=== PATIENT | female | born 1970 | race African-American/Black ===

== ENCOUNTER 2020-04-11 15:12 | Inpatient (IN) | payer OTHER ==
[~2020-04-11] VITALS: Ht 157.5 cm; Wt 187.8 kg
--- NOTE | 2020-04-11 15:20 | NUR ---
[id number] FOR SOB AND BLE SWELLING X 5 DAYS. BG 227 SAP PPM CONSULTANT. PATIENT A/OX4, BREATHING EVEN AND UNLABORED, NO SOB NOTED, NEEDS ATTENDED, KEPT COMFORTABLE. CONNECTED TO THE MONITOR.
--- NOTE | 2020-04-11 15:25 | NUR ---
DR. LAMA AT BEDSIDE FOR EVAL.
[2020-04-11] MEDS ORDERED: HYDROCODONE/APAP 5/325MG TABLET ONE ×2 (16:04→22:24)
[2020-04-11 16:07] LABS: BASOPHILS % (AUTO) 0.5 % (0.0-2.0); EOSINOPHILS % (AUTO) 4.4 % (0.0-6.0); HEMATOCRIT 34 % (33-45); HEMOGLOBIN 10.7 g/dL (11.5-14.8); LYMPHOCYTES # (AUTO) 1.7 /CMM (0.8-4.8); LYMPHOCYTES % (AUTO) 24.7 % (20.0-44.0); MEAN CORPUSCULAR HGB CONC 32 g/dl (31.0-36.0); MEAN CORPUSCULAR VOLUME 84 fL (82-100); MONOCYTES # (AUTO) 0.8 /CMM (0.1-1.30); MONOCYTES % (AUTO) 12.5 % (2.0-12.0); NEUTROPHILS # (AUTO) 3.9 /CMM (1.8-8.9); NEUTROPHILS % (AUTO) 57.9 % (43.0-81.0); PLATELET COUNT (AUTO) 229 /CMM (150-450); RED BLOOD CELL COUNT(AUTO) 4.07 MIL/uL (4.0-5.2); WHITE BLOOD COUNT (AUTO) 6.7 K/uL (4.3-11.0)
[2020-04-11] MEDS ORDERED: MORPHINE SULFATE INJ 4 MG/ML DISP.SYRIN ONE (16:07)
[2020-04-11] MEDS ORDERED: ONDANSETRON HCL/PF 4 MG/2 ML VIAL ONE (16:07)
--- NOTE | 2020-04-11 16:14 | NUR ---
PATIENT IN PAIN, RECEIVED VERBAL ORDER TO GIVE NORCO 5/325MG X2 TABS ONCE, PATIENT REFUSED, PT STS SHE CAN'T SWALLOW AT THIS TIME. INFORMED DR. LAMA. RECEIVED ANOTHER VERBAL ORDER TO GIVE ZOFRAN 4MG IV AND MORPHINE 4MG IV X1. ORDER NOTED AND CARRIED OUT.
[2020-04-11 16:16] LABS: CALCIUM, SERUM 8.2 mg/dL (8.5-10.1); CARBON DIOXIDE 31 mmol/L (21-32); CHLORIDE 102 mmol/L (98-107); CREATININE 1.6 mg/dL (0.6-1.3); GLUCOSE 150 mg/dL (74-106); POTASSIUM 3.9 mmol/L (3.5-5.1); SODIUM SERUM 139 mmol/L (136-145); UREA NITROGEN, BLOOD 22 mg/dL (7-18)
[2020-04-11 16:30] LABS: ALANINE AMINOTRANSFERASE 15 U/L (12-78); ALBUMIN 3.1 g/dL (3.4-5.0); ALKALINE PHOSPHATASE 121 U/L (46-116); ASPARTATE AMINOTRANSFERASE 13 U/L (15-37); B-TYPE NATRIURETIC PEPTIDE 1755 PG/ML (0-125); BILIRUBIN,DIRECT 0.1 mg/dL (0.0-0.2); BILIRUBIN,TOTAL 0.5 mg/dL (0.2-1.0); TOTAL PROTEIN, SERUM 7.2 g/dL (6.4-8.2)
[2020-04-11] MEDS ORDERED: MORPHINE SULFATE INJ 2 MG/ML DISP.SYRIN IV ONE (16:30)
[2020-04-11] MEDS ORDERED: HYDROCODONE/APAP 5/325MG TABLET PO ONE (16:30)
[2020-04-11] MEDS ORDERED: ONDANSETRON HCL/PF 4 MG/2 ML VIAL IV ONE (16:30)
[2020-04-11] MEDS ORDERED: LEVE500T9 PO (16:40)
[2020-04-11] MEDS ORDERED: ACET325T53 PO (16:40)
[2020-04-11] MEDS ORDERED: INSU100V27 SQ (16:40)
[2020-04-11] MEDS ORDERED: LOSA50TA39 PO (16:40)
[2020-04-11] MEDS ORDERED: HYDR50TA61 PO (16:40)
[2020-04-11] MEDS ORDERED: ALBU6.7H9 IH (16:40)
[2020-04-11] MEDS ORDERED: DILT180C66 PO (16:40)
[2020-04-11] MEDS ORDERED: GABA600T PO (16:40)
[2020-04-11] MEDS ORDERED: FURO-144 PO (16:40)
[2020-04-11] MEDS ORDERED: METO50TA16 PO (16:40)
[2020-04-11] MEDS ORDERED: HYDR-4077 PO (16:40)
[2020-04-11] MEDS ORDERED: FLUT16SP16 NS (16:40)
[2020-04-11] MEDS ORDERED: ACET-2605 PO (16:40)
[2020-04-11] MEDS ORDERED: IBUP-51 PO (16:40)
[2020-04-11] MEDS ORDERED: DOCU-141 PO (16:40)
[2020-04-11] MEDS ORDERED: QUET50TA PO (16:40)
[2020-04-11] MEDS ORDERED: ATOR40TA PO (16:40)
[2020-04-11] MEDS ORDERED: APIX5TAB PO (16:40)
[2020-04-11] MEDS ORDERED: CITA40TA22 PO (16:40)
[2020-04-11] MEDS ORDERED: CRAN3875 PO (16:40)
[2020-04-11] MEDS ORDERED: METH-406 PO (16:40)
[2020-04-11] MEDS ORDERED: METF500S7 PO (16:40)
[2020-04-11] MEDS ORDERED: PROM118S5 PO (16:40)
[2020-04-11] MEDS ORDERED: PANT40TA49 PO (16:40)
[2020-04-11] MEDS ORDERED: FUROSEMIDE 40 MG/4 ML VIAL IV ONE (17:30)
[2020-04-11] MEDS ORDERED: FUROSEMIDE 40 MG/4 ML VIAL ONE (17:46)
--- NOTE | 2020-04-11 18:33 | NUR ---
RECEIVED VERBAL AUTH FROM ABIDA Darden ([employer])
[2020-04-11] MEDS ORDERED: MAGNESIUM HYDROXIDE 30 ML UDC PO PRN (19:00)
[2020-04-11] MEDS ORDERED: ZOLPIDEM TARTRATE 5 MG TABLET PO PRN (19:00)
[2020-04-11] MEDS ORDERED: MAG HYDROX/AL HYDROX/SIMETH 30 ML UDC PO PRN (19:00)
[2020-04-11] MEDS ORDERED: ONDANSETRON HCL/PF 4 MG/2 ML VIAL IVP PRN (19:00)
[2020-04-11] MEDS ORDERED: Z GUARD REMEDY 2 OZ OINT TP PRN (19:00)
[2020-04-11] MEDS ORDERED: ACETAMINOPHEN 325 MG TABLET PO PRN (19:00)
[2020-04-11] MEDS ORDERED: ENOXAPARIN SODIUM 40 MG/0.4 ML DISP.SYRIN SQ SCH (19:00)
--- NOTE | 2020-04-11 19:10 | NUR ---
ATTEMPTED TO REASSESS PT. PT REFUSED TO HAVE HER VSS TAKEN. PT VERBALLY AGGRESSIVE DESPITE THERAPEUTIC MEASURES.
--- NOTE | 2020-04-11 19:15 | NUR ---
PT REMOVING CARDIAC LEADS.
--- NOTE | 2020-04-11 20:50 | NUR ---
OK TO ADMIT PER ADMITTING
--- NOTE | 2020-04-11 21:37 | NUR ---
CALLED TO GIVE REPORT, NURSE NOT AVAILABLE FOR THIS PT
--- NOTE | 2020-04-11 21:39 | NUR ---
WAIT FOR TIER OVER TO CALL, NEED MORE NURSES TO ACCOMODATE PATIENT.
--- NOTE | 2020-04-11 21:39 | NUR ---
NEW BED GIVE BY JANITOR SUPERVISOR 251 TELE OVERFLOW TO ICU
[2020-04-11] MEDS: HYDROCODONE/APAP 5/325MG TABLET PO PRN (22:26)
[2020-04-12] VITALS (7 sets, daily range): BP systolic 116–163; BP diastolic 66–85
--- NOTE | 2020-04-12 00:06 | NUR ---
PT TRANSFERRED TO ROOM IN STABLE CONDITION
[2020-04-12] MEDS: HYDROCODONE/APAP 5/325MG TABLET PO PRN ×4 (02:58→19:39)
--- NOTE | 2020-04-12 03:59 | NUR ---
RN notes Admitted a 49 year old female from ER via wheelchair with admitting diagnosis of Acute CHF. Noted with slight difficulty of breathing, on room air with O2sat of 95%, Complaining of back, right shoulder and chest pain 03/08. Patient is alert and oriented with flight of ideas, jumping from one point to another. [place] given, slightly effective. Vital signs wnl. Needs attended. Kept clean and dry. Addendum: 04/12/20 at 0717 by ZANDRA RODRÍGUEZ RN Noted patient to be alert and oriented and just pretending not to be focused on any topic. Patient took out all her wirings for monitoring of her vital signs. She did not pull out her IV because as she said I need pain medication through my vein. Refused to put back all vital signs wiring. Explained risk and benefits. Patient tried to get out of the room and went to the door to get out to smoke. Able to persuade patient to go back and stay in bed because her covid test is still pending and she is still not allowed to go out. Patient has been screaming all throughout the night. Patient was complaining of pain all over her body and she needs pain medication through vein. Gave norco which she took, but still complaining it is not enough. All needs attended. Kept clean and dry. Endorsed to next shift for continuity of care.
[2020-04-12 05:02] LABS: BASOPHILS % (AUTO) 0.5 % (0.0-2.0); EOSINOPHILS % (AUTO) 4.3 % (0.0-6.0); HEMATOCRIT 35 % (33-45); HEMOGLOBIN 11.1 g/dL (11.5-14.8); LYMPHOCYTES # (AUTO) 2.3 /CMM (0.8-4.8); LYMPHOCYTES % (AUTO) 31.3 % (20.0-44.0); MEAN CORPUSCULAR HGB CONC 31 g/dl (31.0-36.0); MEAN CORPUSCULAR VOLUME 83 fL (82-100); MONOCYTES # (AUTO) 0.8 /CMM (0.1-1.30); MONOCYTES % (AUTO) 11.3 % (2.0-12.0); NEUTROPHILS # (AUTO) 3.8 /CMM (1.8-8.9); NEUTROPHILS % (AUTO) 52.6 % (43.0-81.0); PLATELET COUNT (AUTO) 232 /CMM (150-450); RED BLOOD CELL COUNT(AUTO) 4.24 MIL/uL (4.0-5.2); WHITE BLOOD COUNT (AUTO) 7.3 K/uL (4.3-11.0)
[2020-04-12 05:24] LABS: CALCIUM, SERUM 8.6 mg/dL (8.5-10.1); CREATININE 1.4 mg/dL (0.6-1.3); MAGNESIUM 1.9 mg/dL (1.8-2.4); PHOSPHORUS 4.6 mg/dL (2.5-4.9); POTASSIUM 3.7 mmol/L (3.5-5.1)
[2020-04-12 05:27] LABS: THYROID STIMULATING HORMONE 2.35 uIU/mL (0.358-3.74)
--- NOTE | 2020-04-12 07:30 | NUR ---
PT RECEIVED IN BED, EYES OPEN EATING BREAKFAST, ALERT AND ORIENTED X 4. PT ON RA O2 SATURATION 95%. NO SOB OR RESPIRATORY DISTRESS AT REST. PT MONITOR SHOWING SR 80-100. IV RAC #20 SL, FLUSHED WELL NO SIGNS OF INFECTION OR INFILTRATION. BED IN LOCKED LOWEST POSITION, CALL LIGHT WITHIN REACH. ALL SAFETY MEASURES IN PLACE. WILL CONTINUE TO MONITOR CLOSELY.
[2020-04-12] MEDS: PANTOPRAZOLE 40 MG TABLET.DR PO SCH (07:40)
[2020-04-12] MEDS ORDERED: FUROSEMIDE 40 MG/4 ML VIAL IV SCH (09:00)
--- NOTE | 2020-04-12 09:34 | NUR ---
PT REFUSES LASIX UNTIL BARIATRIC COMMODE AVAILABLE FROM [facility]. WILL HOLD DOSE AND FOLLOW UP WITH [facility]
[2020-04-12] MEDS: APIXABAN 5 MG TABLET PO SCH ×2 (10:00→17:00)
[2020-04-12] MEDS: VALSARTAN 80 MG TABLET PO SCH (10:00)
[2020-04-12] MEDS ORDERED: PANTOPRAZOLE 40 MG TABLET.DR PO SCH (10:00)
[2020-04-12] MEDS: DOCUSATE SODIUM 100 MG CAPSULE PO SCH ×2 (10:00→17:00)
--- NOTE | 2020-04-12 10:43 | NUR ---
40 MG OF LASIX GIVEN FOR SCHEDULED 0900 DOSE. ACTION UNDONE DUE TO PT REFUSAL. LASIX THEN GIVEN AFTER. MED RECON COMPLETED, WITH 0900 DOSE OF LASIX D/C BUT IN THE MAR "MISSED DOSE". PT HAS UPCOMING DOSE OF LASIX AT 1200 FOR 80 MG. WILL ADMINISTER ONLY 40 MG INSTEAD OF THE FULL 80 MG DOSE AT 1200
[2020-04-12] MEDS: METOPROLOL TARTRATE 50 MG TABLET PO SCH ×2 (10:57→18:05)
[2020-04-12] MEDS: hydrALAZINE HCL 50 MG TABLET PO SCH ×2 (10:58→17:00)
--- NOTE | 2020-04-12 11:05 | NUR ---
PT CUT SELF ON COMMODE, SLIGHT BLEEDING. ELIQUIS WITHHELD
[2020-04-12 11:19] LABS: ABG BASE EXCESS 3.6 mmol/L; ABG OXYGEN SATURATION 90.4 % (92.0-98.5); ABG PCO2 53.9 mmHg (35.0-45.0); ABG PH 7.363 (7.350-7.450); ABG PO2 62.5 mmHg (75.0-100.0); AaDO2 22.7 mmHg; COHb 1.8 % (0.5-1.5); MetHb 0.1 % (0.0-1.5); O2Hb 88.7 % (94.0-97.0); SITE, ABG Right Radial; VENT MODE, BG room air
[2020-04-12] MEDS ORDERED: *INSULIN REGULAR(HUMULIN R)HUM 100 UNIT/ML VIAL SQ PRN (12:00)
[2020-04-12] MEDS ORDERED: DEXTROSE 50%-WATER 50 ML DISP.SYRIN IV PRN (12:00)
[2020-04-12] MEDS: FUROSEMIDE 100 MG/10 ML VIAL IV SCH ×3 (12:18→19:42)
[2020-04-12] MEDS: BLOOD SUGAR DIAGNOSTIC 1 EACH STRIP VI SCH ×3 (12:19→21:21)
[2020-04-12] MEDS: INSULIN REGULAR, HUMAN 100 UNIT/ML 3 ML VIAL SQ PRN ×2 (12:23→18:13)
[2020-04-12] MEDS: POTASSIUM CHLORIDE 20 MEQ TAB.PRT.SR PO SCH ×3 (12:24→14:54)
[2020-04-12] MEDS: MORPHINE SULFATE INJ 2 MG/ML DISP.SYRIN IV PRN ×3 (12:28→21:38)
[2020-04-12] MEDS: DILTIAZEM HCL CD 300 MG PO SCH (13:05)
[2020-04-12] MEDS ORDERED: D-METHORPHAN HB/PROMETH HCL 5 ML UDC PO PRN (13:30)
[2020-04-12] MEDS: IPRATROPIUM NEB FS 0.5 MG/2.5 ML AMPUL.NEB NEB SCH ×2 (13:30→19:30)
--- NOTE | 2020-04-12 13:50 | NUR ---
[facility] HELD PENDING COVID RESULT
[2020-04-12] MEDS: GABAPENTIN 300 MG CAPSULE PO SCH ×2 (14:11→20:14)
[2020-04-12] MEDS: CITALOPRAM HYDROBROMIDE 20 MG TABLET PO SCH (14:54)
[2020-04-12] MEDS ORDERED: GUAIFENESIN/D-METHORPHAN HB 5 ML UDC PO PRN (17:00)
--- NOTE | 2020-04-12 17:48 | NUR ---
PT TRANSFERRED TO [facility]
--- NOTE | 2020-04-12 17:48 | NUR ---
UA COLLECTED, AWAITING PICK-UP FROM LAB
--- NOTE | 2020-04-12 18:00 | NUR ---
PM MEDS OF ELIQUIS, COLACE WITHHELD DUE TO PT REFUSAL DESPITE RN EDUCATION. HYDRALAZINE WITHHELD DUE BP SBP 126/79. METOPROLOL AND LASIX GIVEN
[2020-04-12] MEDS: LEVETIRACETAM (250 MG) 250 MG TABLET PO SCH (18:04)
[2020-04-12 19:05] LABS: CREATININE, URINE 72.5 MG/DL (30.0-125.0)
--- NOTE | 2020-04-12 19:20 | NUR ---
RN NOTE PT AWAKE AND ALERT/ORIENTED X 4. ASSISTED TO BEDSIDE COMMODE. ON ROOM AIR, RESPIRATIONS EVEN AND UNLABORED, SR ON THE BAND SAW OPERATOR, IV LINE FLUSHED AND PATENT. PLAN OF CARE DISCUSSED, CALL LIGHT WITHIN REACH, SAFETY MEASURES IN PLACE PER PROTOCOL, WILL MONITOR PATIENT.
[2020-04-12 19:28] LABS: BILIRUBIN,URINE NEGATIVE (NEGATIVE); BLOOD, URINE NEGATIVE Ery/uL (NEGATIVE); COLOR,URINE YELLOW (YELLOW); LEUKOCYTE ESTERASE ,URINE TRACE (NEGATIVE); NITRITE, URINE NEGATIVE (NEGATIVE); PROTEIN,URINE NEGATIVE (NEGATIVE); UGLUCOSE NEGATIVE (NEGATIVE)
--- NOTE | 2020-04-12 19:33 | NUR ---
PT IN BED, AWAKE AND ORIENTED X 4. PT O2 SATURATION 95% RA NO RESPIRATORY DISTRESS OR SOB. PT IV ACCESS REMAINS INTACT AND FLUSHED WELL, SALINE LOCKED, NO SIGNS OF INFECTION OR INFILTRATION. PT AMBULATORY TO BEDSIDE COMMODE, 1 BM TODAY AND 1500 ML URINE OUTPUT. PT HAS LEFT LEG WOUND, WOUND CARE CONSULT INITIATED. PT IN BED LOCKED LOWEST POSITION. CALL LIGHT WITHIN PLACE. ALL SAFETY MEASURES IN PLACE. REPORT GIVEN TO ETHAN FOR BERTO.
[2020-04-12 19:49] LABS: BACTERIA,URINE 1+ /HPF (None Seen); RBC,URINE 0-2 /HPF (0-2)
[2020-04-12 19:53] LABS: EOSINOPHIL,URINE None Seen
[2020-04-13] VITALS: BP 123/98
[2020-04-13] MEDS: IPRATROPIUM NEB FS 0.5 MG/2.5 ML AMPUL.NEB NEB SCH ×2 (01:30→07:55)
--- NOTE | 2020-04-13 02:00 | NUR ---
RN NOTE PT SLEEPING IN BED COMFORTABLY WITHOUT SIGNS OF PAIN OR DISCOMFORT.
[2020-04-13] MEDS: MORPHINE SULFATE INJ 2 MG/ML DISP.SYRIN IV PRN ×2 (03:43→09:01)
[2020-04-13 04:00] VITALS: BP 147/73
[2020-04-13] MEDS: HYDROCODONE/APAP 5/325MG TABLET PO PRN (04:51)
--- NOTE | 2020-04-13 05:14 | NUR ---
RN NOTE PT RESTLESS AND AGITATED. ADMINISTERED PRN PAIN MEDICATION REQUESTED BY PATIENT. POST ADMINISTRATION OF ANALGESICS, PT IS STILL RESTLESS WITH PAIN AND STATES THAT SMOKING WILL HELP WITH HER PAIN. PT TRIED TO LEAVE ROOM TO GO SMOKE. EXPLAINED PT CANNOT SMOKE AND LEAVE UNIT PER HOSPITAL POLICY. OFFERED TO CALL TO OBTAIN ORDER FOR NICOTINE PATCH BUT PT REFUSED . EXPLAINED THAT SECURITY WILL BE CALLED IF PT TRIED TO LEAVE THE UNIT TO GO SMOKE. PT THEN CALMED DOWN AND RETURNED TO BED. WILL MONITOR CLOSELY. EXECUTIVE SALES ASSISTANT MADE AWARE.
--- NOTE | 2020-04-13 05:30 | NUR ---
RN NOTE TEAROOM HOST AT BEDSIDE DRAWING AM LABS. PT NOW DENIES PAIN OR DISCOMFORT.
[2020-04-13 06:14] LABS: BASOPHILS % (AUTO) 0.4 % (0.0-2.0); EOSINOPHILS % (AUTO) 4.2 % (0.0-6.0); HEMATOCRIT 36 % (33-45); HEMOGLOBIN 11.4 g/dL (11.5-14.8); LYMPHOCYTES # (AUTO) 1.7 /CMM (0.8-4.8); LYMPHOCYTES % (AUTO) 23.8 % (20.0-44.0); MEAN CORPUSCULAR HGB CONC 32 g/dl (31.0-36.0); MEAN CORPUSCULAR VOLUME 84 fL (82-100); MONOCYTES # (AUTO) 0.9 /CMM (0.1-1.30); MONOCYTES % (AUTO) 12.8 % (2.0-12.0); NEUTROPHILS # (AUTO) 4.3 /CMM (1.8-8.9); NEUTROPHILS % (AUTO) 58.8 % (43.0-81.0); PLATELET COUNT (AUTO) 237 /CMM (150-450); RED BLOOD CELL COUNT(AUTO) 4.28 MIL/uL (4.0-5.2); WHITE BLOOD COUNT (AUTO) 7.3 K/uL (4.3-11.0)
[2020-04-13 06:45] LABS: ALANINE AMINOTRANSFERASE 21 U/L (12-78); ALBUMIN 3.5 g/dL (3.4-5.0); ALKALINE PHOSPHATASE 124 U/L (46-116); ASPARTATE AMINOTRANSFERASE 25 U/L (15-37); BILIRUBIN,TOTAL 0.9 mg/dL (0.2-1.0); CALCIUM, SERUM 8.7 mg/dL (8.5-10.1); CARBON DIOXIDE 36 mmol/L (21-32); CHLORIDE 101 mmol/L (98-107); CREATININE 1.2 mg/dL (0.6-1.3); GLUCOSE 153 mg/dL (74-106); MAGNESIUM 1.8 mg/dL (1.8-2.4); PHOSPHORUS 3.9 mg/dL (2.5-4.9); POTASSIUM 4.2 mmol/L (3.5-5.1); SODIUM SERUM 139 mmol/L (136-145); TOTAL PROTEIN, SERUM 7.9 g/dL (6.4-8.2); UREA NITROGEN, BLOOD 20 mg/dL (7-18)
--- NOTE | 2020-04-13 06:52 | NUR ---
RN NOTE NO ACUTE CHANGES OBSERVED OVERNIGHT. PT AWAKE AND ALERT/ORIENTED X 4. PT SITTING UP AT EDGE OF BED. PT STILL REQUESTING TO GO SMOKE. EXPLAINED HOSPITAL POLICY AGAIN. ASSISTED PT TO BEDSIDE COMMODE. IV LINE FLUSHED AND PATENT. ON ROOM AIR. RESPIRATIONS EVEN AND UNLABORED. DENIES PAIN OR DISCOMFORT AT THIS TIME. CONTINUING STRICT INTAKE AND OUTPUT. CALL LIGHT WITHIN REACH, SAFETY MEASURES IN PLACE, WILL ENDORSE TO MORNING RN FOR BERTO.
[2020-04-13] MEDS: BLOOD SUGAR DIAGNOSTIC 1 EACH STRIP VI SCH (07:39)
--- NOTE | 2020-04-13 07:45 | NUR ---
RN OPENING NOTE: RECEIVED PATIENT IN BED THIS MORNING. PATIENT IS AAOX4, RESPONDS APPROPRIATELY. SATING WELL ON ROOM AIR. NO SIGNS OF ACUTE DISTRESS NOTED AT THIS TIME. CONTROLLED AFIB IN THE 80S NOTED ON THE TELE MONITOR. AMBULATORY WITH ASSIST. AWAITING WOUND CONSULT. #18 RAC. SAFETY MEASURES IMPLEMENTED, BED IN LOWEST POSITION, LOCKED, SIDE RAILS UP, CALL LIGHT WITHIN REACH. WILL CONTINUE TO MONITOR PATIENT FOR CHANGES.
[2020-04-13 08:00] VITALS: BP 149/62
[2020-04-13] MEDS: DOCUSATE SODIUM 100 MG CAPSULE PO SCH (08:15)
[2020-04-13] MEDS: PANTOPRAZOLE 40 MG TABLET.DR PO SCH (08:15)
[2020-04-13] MEDS: METOPROLOL TARTRATE 50 MG TABLET PO SCH (08:15)
[2020-04-13 08:16] VITALS: BP 149/62
[2020-04-13] MEDS: hydrALAZINE HCL 50 MG TABLET PO SCH (08:16)
[2020-04-13] MEDS: LEVETIRACETAM (250 MG) 250 MG TABLET PO SCH (08:16)
[2020-04-13] MEDS: VALSARTAN 80 MG TABLET PO SCH (08:16)
[2020-04-13] MEDS: CITALOPRAM HYDROBROMIDE 20 MG TABLET PO SCH (08:16)
[2020-04-13] MEDS: GABAPENTIN 300 MG CAPSULE PO SCH (08:16)
[2020-04-13] MEDS: DILTIAZEM HCL CD 300 MG PO SCH (08:16)
[2020-04-13] MEDS: APIXABAN 5 MG TABLET PO SCH (08:17)
[2020-04-13] MEDS: INSULIN REGULAR, HUMAN 100 UNIT/ML 3 ML VIAL SQ PRN (08:18)
[2020-04-13] MEDS ORDERED: Medication Not On Formulary EA (Cran/Vitc/Mannose/Inulin/Brom (Uti-Stat Liquid) 30 MG) PO SCH (09:00)
[2020-04-13] MEDS ORDERED: METHOCARBAMOL (750MG) 750 MG TABLET PO SCH (09:00)
[2020-04-13] MEDS ORDERED: FLUTICASONE PROPIONATE 16 GM BOTTLE NS SCH (09:00)
--- NOTE | 2020-04-13 09:15 | NUR ---
CONTGATED RX, AWAITING ROBAXAN
[2020-04-13] MEDS ORDERED: FUROSEMIDE 100 MG/10 ML VIAL IV SCH (09:30)
--- NOTE | 2020-04-13 09:30 | NUR ---
PATIENT GETTING VERBALLY AGGRESSIVE THREATENING TO FIGHT ME. SECURITY CALLED TO STANDBY IN CASE OF ALTERCATION.
--- NOTE | 2020-04-13 09:35 | NUR ---
PATIENT WANTED TO SMOKE,EXPLAINED NEED ORDER FROM HER DOCTOR,PATIENT GET UPSET AND VERBALIZED IT IS HER RIGHT AND SHE IS BEEN SMOKING FOR A WHILE.REASSURED WILL NOTIFY HER DOCTOR.
--- NOTE | 2020-04-13 09:37 | NUR ---
PER DR. CROCKER PULMONARY IF PATIENT WELL ENOUGH TO SMOKE SHE CAN LEAVE HOSPITAL.
--- NOTE | 2020-04-13 09:38 | NUR ---
OFFERED NICOTINE PATCH TO PATIENT AND EXPLAINED PULMONARY RECOMMENDATION ,PATIENT GET UPSET AND SCREAMING TO STAFF.NURSING SUP LV NOTIFIED ,SECURITY CALLED.
--- NOTE | 2020-04-13 09:41 | NUR ---
BACK GRINDER [place] MADE AWARE OF SITUATION,PATIENT MAKING PHONE CALLS,SIGNED AMA FORM.
--- NOTE | 2020-04-13 09:53 | NUR ---
PATIENT CALLED [facility] AND PER PATIENT SHE GOING BACK [facility],,YANELIS FIGUEROA AWARE SHE WILL NOTIFY [facility] .
--- NOTE | 2020-04-13 09:56 | NUR ---
DR. KONG NOTIFIED.
--- NOTE | 2020-04-13 10:00 | NUR ---
PATIENT LEFT HOSPITAL PICKUP BY RYLIE STARKS.
--- NOTE | 2020-04-13 10:00 | NUR ---
PATIENT LEFT HOSPITAL WEAVER. DR CROCKER GAVE OK FOR WEAVER AND DR KONG ALSO NOTIFIED. PATIENT GOT ESCORTED OUT WITH WC, [facility] PICKED HER UP TO TAKE HER BACK TO THE [facility]. WEAVER PAPERWORK SIGNED. INFORMED PATIENT ON RISK FOR LEAVING WEAVER WITH EDUCATIONAL PACKET. Addendum: 04/13/20 at 1045 by ALEJA CRAIG RN PATIENT'S IV WAS REMOVED PRIOR TO LEAVING UNIT Addendum: 04/13/20 at 1054 by ALEJA CRAIG RN BELONGINGS SENT WITH PATIENT. Addendum: 04/13/20 at 1059 by ALEJA CRAIG RN INCIDENT REPORT COMPLETE
== END 2020-04-13 09:56 | disposition left against medical advice (07) | DRG 194 ==
LOC: ER 15:14 → ICU 21:32 → TELE1 04-12 17:37
PROVIDERS: ADMIT Student in an Organized Health Care Education/Training Program; ATTEND Student in an Organized Health Care Education/Training Program
DX: I13.0 Hypertensive heart and chronic kidney disease with heart failure and stage 1 through stage 4 chronic kidney disease, or unspecified chronic kidney disease (principal); I50.33 Acute on chronic diastolic (congestive) heart failure; Z68.45 Body mass index [BMI] 70 or greater, adult; I48.91 Unspecified atrial fibrillation; E11.9 Type 2 diabetes mellitus without complications; J44.9 Chronic obstructive pulmonary disease, unspecified; D68.59 Other primary thrombophilia; G40.909 Epilepsy, unspecified, not intractable, without status epilepticus; D68.9 Coagulation defect, unspecified; Z88.6 Allergy status to analgesic agent; Z88.1 Allergy status to other antibiotic agents; Z88.0 Allergy status to penicillin; Z88.8 Allergy status to other drugs, medicaments and biological substances; Z79.51 Long term (current) use of inhaled steroids; Z79.4 Long term (current) use of insulin; Z79.899 Other long term (current) drug therapy; E66.2 Morbid (severe) obesity with alveolar hypoventilation; E11.22 Type 2 diabetes mellitus with diabetic chronic kidney disease; N18.9 Chronic kidney disease, unspecified; F17.200 Nicotine dependence, unspecified, uncomplicated; G89.29 Other chronic pain
CPT/HCPCS: 36415; 36600; 71045-TC; 80048-TC; 80053-TC; 80061-TC; 80076-TC; 81001; 82570-TC; 82962-TC; 83735-TC; 83880; 84100-TC; 84155-TC; 84300-TC; 84443-TC; 84484-TC; 85025-TC; 85730-TC; 87081-TC; 93307-TC; 94799-TC; G0378; J1815; J1940; J2270; J2405; U0003